=== PATIENT | male | born 1960 | race Caucasian/White ===

== ENCOUNTER 2020-03-27 20:07 | Emergency (ER) | payer OTHER, MEDICARE ==
[~2020-03-27] VITALS: Ht 182.9 cm; Wt 102.5 kg
[~2020-03-27 20:07] MED LIST: ACET500; ALBU90OI INH; ALLO100; ALLO300; AMOCLA875; AMOCLA875 PO; ATOR40TA PO; BUTASPCAFT; ELET40TA; ELET40TA PO; ESOM20; Flonase 0.05% N16 GM; GLIP5 PO; HYDACE10B PO; HYDACE5; HYDACE5325 PO; HYDCHL25; IBUP800; INSULANPEN SC; ISODICACE; ISODICACE PO; Imitrex100 MG PO; LEVFLO500 PO; LORA1 PO; MECL25; METFORMIN HCL1000 M1 PO; MIRA; MONT10T; NAPR500 PO; NASAL SPRAY; NORT25; NORT25 PO; NORT75; OMEP20ER PO; OXYACE5T; POTCHL10ER; POTCIT10 PO; PRAM.125; PRAZ2; PRAZ2 PO; PROC5; PROC5S; PROM25; PROM25 PO; PROP80ER PO; RABE20; SERT25; SERT50; SIMV10; SIMV10 PO; SIMV20; TELM40; TRAZ100; TRAZ50; VARDENAFIL; ZOLP10; Zantac150 MG PO
== END 2020-03-27 22:10 | disposition home or self-care (01) ==
LOC: ER 20:07
DX: G43.909 Migraine, unspecified, not intractable, without status migrainosus (principal); E11.9 Type 2 diabetes mellitus without complications; I10 Essential (primary) hypertension; Z79.4 Long term (current) use of insulin; Z88.5 Allergy status to narcotic agent; Z79.899 Other long term (current) drug therapy
CPT/HCPCS: 96374; 96375; 99283-25; J1200; J1885; J2765

== ENCOUNTER 2022-01-02 19:51 | Emergency (ER) | payer OTHER ==
[~2022-01-02] VITALS: Ht 182.9 cm; Wt 97.5 kg
== END 2022-01-02 21:43 | disposition home or self-care (01) ==
LOC: ER 19:51
DX: G43.909 Migraine, unspecified, not intractable, without status migrainosus (principal); I10 Essential (primary) hypertension; E11.9 Type 2 diabetes mellitus without complications; Z88.5 Allergy status to narcotic agent; Z79.899 Other long term (current) drug therapy; Z79.4 Long term (current) use of insulin; Z87.820 Personal history of traumatic brain injury
CPT/HCPCS: 36415; 96374; 96375; 99283-25; A9270; J0780; J1200; J1885; J7030

== ENCOUNTER 2023-02-09 18:13 | Emergency (ER) | payer OTHER ==
[~2023-02-09] VITALS: Ht 167.6 cm; Wt 74.8 kg
[2023-02-09 18:30] VITALS: BP 157/100
== END 2023-02-09 20:21 | disposition home or self-care (01) ==
LOC: ER 18:13
DX: G43.909 Migraine, unspecified, not intractable, without status migrainosus (principal); Z79.899 Other long term (current) drug therapy
CPT/HCPCS: 96361; 96374; 96375; 99283-25; J0780; J1200; J1885; J7030

== ENCOUNTER 2025-03-29 02:58 | Emergency (ER) | payer OTHER ==
[~2025-03-29] VITALS: Ht 182.9 cm; Wt 97.1 kg
[2025-03-29 03:59] LABS: BASOPHILS ABSOLUTE AUTO 0.06 K/mm3 (0.00-0.23); BASOPHILS PERCENT AUTO 1 % (0-2); EOSINOPHILS ABSOLUTE AUTO 0.31 K/mm3 (0.00-0.68); EOSINOPHILS PERCENT AUTO 7 % (0-6); Hematocrit 40.7 % (37.0-53.0); Hemoglobin 14.2 g/dL (13.5-17.5); IMMATURE GRAN ABSOLUTE AUTO 0.01 K/mm3 (0.00-0.10); IMMATURE GRAN PERCENT AUTO 0 % (0-1); LYMPHOCYTES ABSOLUTE AUTO 1.42 K/mm3 (0.84-5.20); LYMPHOCYTES PERCENT AUTO 31 % (21-46); MONOCYTES ABSOLUTE AUTO 0.39 K/mm3 (0.16-1.47); MONOCYTES PERCENT AUTO 8 % (4-13); Mean Corpuscular HGB Conc 34.9 g/dL (31.5-36.5); Mean Corpuscular Volume 93 fL (80-100); NEUTROPHILS ABSOLUTE AUTO 2.43 K/mm3 (1.96-9.15); NEUTROPHILS PERCENT AUTO 53 % (41-73); NRBC ABSOLUTE 0.00 K/mm3 (0.00-0.02); NRBC Auto 0.0 /100 WBC (0.0-0.2); Platelet Count 289 K/mm3 (150-400); RDW Coefficient Variation 11.9 % (11.7-14.2); RDW Standard Deviation 41.1 fL (35.1-46.3)
[2025-03-29] MEDS ORDERED: Dexamethasone Sod Phos 10 MG/ML 1ML VIAL IV ONE (04:00)
[2025-03-29] MEDS ORDERED: NS 1,000 ML IV SCH (04:00)
[2025-03-29] MEDS ORDERED: Metoclopramide HCl 5MG / ML 2ML Vial IV ONE (04:05)
[2025-03-29] MEDS ORDERED: DiphenhydrAMINE HCl 50 MG/ML 1ML Vial IV ONE ×2 (04:05)
[2025-03-29 04:27] LABS: Alanine Aminotransfer (ALT/SGP 51.0 U/L (12-78); Albumin, Blood 3.9 g/dL (3.4-5.0); Albumin/Globulin Ratio 1.1 (0.8-1.8); Anion Gap 4.0 mmol/L (3-11); Aspartate Aminotrans (AST/SGOT 24.0 U/L (12-37); Bilirubin, Total 0.3 mg/dL (0.1-1.0); Blood Urea Nitrogen 11.0 mg/dL (8-24); CO2, Blood 32.0 mmol/L (21-32); Calcium, Blood 9.8 mg/dL (8.5-10.1); Chloride, Blood 105.0 mmol/L (98-108); Creatinine, Blood 0.86 mg/dL (0.60-1.20); Globulin, Blood 3.5 g/dL (2.2-4.0); Glucose, Blood 163.0 mg/dL (70-99); Potassium, Blood 3.7 mmol/L (3.5-5.5); Sodium, Blood 137.0 mmol/L (136-145); Total Protein, Blood 7.4 g/dL (6.4-8.2)
[2025-03-29 04:45] VITALS: BP 146/98
== END 2025-03-29 05:50 | disposition home or self-care (01) ==
LOC: ER 02:58
PROVIDERS: Emergency Medicine
DX: G43.919 Migraine, unspecified, intractable, without status migrainosus (principal); Z88.5 Allergy status to narcotic agent; Z79.84 Long term (current) use of oral hypoglycemic drugs; Z79.4 Long term (current) use of insulin; Z79.899 Other long term (current) drug therapy
CPT/HCPCS: 80053; 85025; 96361; 96374; 96375; 99283-25; J1100; J1200; J1790; J2765; J7030